=== PATIENT | male | born 1950 | race African-American/Black ===

== ENCOUNTER 2020-05-04 23:25 | Emergency (ER) | payer MEDICARE, MEDICAID ==
[~2020-05-04] VITALS: Ht 170.2 cm; Wt 77.3 kg
[~2020-05-04 23:25] MED LIST: DICLOFENAC75 MG PO; LYRICA100 MG PO
[2020-05-05 00:14] LABS: IMMATURE GRANULOCYTES 4.1 % (0.0-5.0); MEAN CELL VOLUME 92.8 fL CALC (80.0-100.0); MEAN CORPUSCULAR HGB 28.5 pG CALC (26.0-32.0); MEAN CORPUSCULAR HGB CONC 30.7 g/dL CAL (32.0-36.0); NEUT# 15.89 thou/uL (1.82-7.42); RED BLOOD COUNT 2.35 mill/uL (4.70-6.10); RED CELL DISTRI WIDTH 13.6 % (11.5-15.5)
[2020-05-05 00:29] LABS: HEMATOCRIT 21.8 % (39.0-50.0); HEMOGLOBIN 6.7 g/dl (14.0-18.0); POTASSIUM 4.4 mmol/l (3.5-5.1); TOTAL PROTEIN 6.1 g/dL (6.3-8.2)
[2020-05-05 00:39] LABS: BILIRUBIN, TOTAL 0.2 mg/dL (0.0-1.4)
[2020-05-05 00:42] LABS: ACT PARTIAL THROMBO TIME 24.5 SECONDS (20.0-32.5); INTERNATIONAL NORMALIZED RATIO 1.1 RATIO (0.7-1.3); PROTHROMBIN TIME 10.8 SECONDS (9.0-12.5)
[2020-05-05 01:00] LABS: D-DIMER 7.41 mg/L (0.19-0.60)
[2020-05-05 02:32] VITALS: BP 144/91
[2020-05-05 02:42] VITALS: BP 135/87
[2020-05-05 03:00] VITALS: BP 97/71
[2020-05-05] MEDS ORDERED: GABAPENTIN100 MG PO (03:12)
[2020-05-05] MEDS ORDERED: DEPAKOTE250 MG PO (03:13)
== END 2020-05-05 03:00 ==
LOC: ED 23:25
PROVIDERS: Family Medicine
PROC: 30233N1 Transfusion of Nonautologous Red Blood Cells into Peripheral Vein, Percutaneous Approach (ICD-10-PCS; principal; 2020-05-05)
DX: T82.392A Other mechanical complication of femoral arterial graft (bypass), initial encounter (principal); I99.8 Other disorder of circulatory system; K92.2 Gastrointestinal hemorrhage, unspecified; D64.9 Anemia, unspecified; N17.9 Acute kidney failure, unspecified; I10 Essential (primary) hypertension; I73.9 Peripheral vascular disease, unspecified; G62.9 Polyneuropathy, unspecified; Y83.2 Surgical operation with anastomosis, bypass or graft as the cause of abnormal reaction of the patient, or of later complication, without mention of misadventure at the time of the procedure; Z89.512 Acquired absence of left leg below knee; Z95.828 Presence of other vascular implants and grafts
CPT/HCPCS: J1644; P9016; Q9967; S0164